=== PATIENT | male | born 1990 | race Hispanic/Latino ===

== ENCOUNTER 2019-06-18 12:54 | Emergency (ER) | payer SELFPAY ==
[~2019-06-18] VITALS: Ht 152.4 cm; Wt 83.9 kg
[2019-06-18] MEDS ORDERED: MORPHINE 2 MG/ML 1ML VIAL (J2270) IV ONE (13:30)
[2019-06-18] MEDS ORDERED: NS 1,000 ML IV ONE (13:30)
[2019-06-18] MEDS ORDERED: ONDANSETRON 4MG/2ML VIAL (J2405) IV ONE (13:30)
[2019-06-18 14:04] LABS: BASO % 0.5 % (0.0-1.0); EOS # 0.4 10^3/uL (0.0-0.5); EOS % 4.1 % (0.0-3.0); HEMATOCRIT 46.2 % (42.0-52.0); HEMOGLOBIN 15.7 g/dl (13.5-17.5); LYMPH # 2.4 10^3/uL (1.5-5.0); LYMPH % 28.7 % (24.0-44.0); MEAN CORPUSCULAR VOLUME 85.4 fl (80.0-96.0); MONO # 0.5 10^3/uL (0.0-0.8); MONO % 6.1 % (0.0-5.0); NEUTROPHILS # 5.1 10^3/uL (1.5-8.5); NEUTROPHILS % 60.2 % (36.0-66.0); PLATELET COUNT, AUTOMATED 274 10^3/uL (150-450); RED BLOOD COUNT 5.41 10^6/uL (4.30-6.10); WHITE BLOOD COUNT 8.5 10^3/uL (4.0-10.0)
[2019-06-18] MEDS ORDERED: ISOVUE-370 76% 100ML VIAL (Q9967) As Ordered ONE (14:22)
[2019-06-18 14:31] LABS: ALBUMIN 4.3 GM/DL (3.2-5.2); BILIRUBIN,DIRECT 0.1 MG/DL (0.0-0.2); BILIRUBIN,TOTAL 0.4 MG/DL (0.2-1.0); TOTAL PROTEIN 7.5 GM/DL (6.4-8.2)
--- NOTE | 2019-06-18 15:04 | REP ---
REASON FOR EXAM: Left lower quadrant pain. There are no priors for comparison. CONTRAST: 100 mL Isovue 370. The lung bases are clear. The liver, gallbladder, spleen, pancreas, adrenal glands, and kidneys are within normal limits. There is no free fluid or free air. There is no intra-abdominal mass or adenopathy. The aorta and paraaortic regions are within normal limits. Seen in the very distal descending colon, there is a very subtle amount of potential early pericolonic fatty infiltration. There are no abnormal diverticula in the region. CT PELVIS: The pelvic bowel loops and their mesenteries are within normal limits. There is no mass or adenopathy. There is no free fluid or free air. Bone window technique throughout the exam shows the osseous structures to be within normal limits. IMPRESSION: Possible very early descending colon segmental colitis. Correlate clinically with appropriate followup as necessary. Electronically Signed by Faraz Montejo DO 06/18/2019 03:22 P
[2019-06-18] MEDS ORDERED: FLAG500T PO (15:28)
[2019-06-18] MEDS ORDERED: CIPR-249 PO (15:28)
[2019-06-18 15:45] VITALS: BP 139/72
== END 2019-06-18 15:46 | disposition home or self-care (01) ==
LOC: M ED 12:54
DX: K52.9 Noninfective gastroenteritis and colitis, unspecified (principal)
CPT/HCPCS: 74177; 80047; 80076; 81001; 83690; 85025; 96361; 96374; 96375; 99284; J2270; J2405; Q9967